=== PATIENT | male | born 1960 | race Caucasian/White ===

== ENCOUNTER 2018-09-05 04:45 | Emergency (ER) | payer OTHER ==
[~2018-09-05] VITALS: Ht 172.7 cm; Wt 70.3 kg
[~2018-09-05 04:45] MED LIST: COMBIVENT INH; LEVAQUIN 500 M500 M2 PO; PREDNISONE 10 M10 M1 PO; PROAIR HFA8.5 GM INH; SYNTHROID75 MCG PO
[2018-09-05] MEDS ORDERED: MOBIC15 MG PO (04:53)
[2018-09-05] MEDS ORDERED: PREDNISONE 20 M20 M1 PO (04:58)
[2018-09-05] MEDS ORDERED: ZPAK PO (04:58)
[2018-09-05] MEDS ORDERED: VENTOLIN HFA 1818 GM INH (04:58)
[2018-09-05 06:09] VITALS: BP 128/87
== END 2018-09-05 06:09 | disposition home or self-care (01) ==
LOC: M.ERS 04:45
DX: J44.1 Chronic obstructive pulmonary disease with (acute) exacerbation (principal); E03.9 Hypothyroidism, unspecified; F17.210 Nicotine dependence, cigarettes, uncomplicated